=== PATIENT | female | born 1990 | race Caucasian/White ===

== ENCOUNTER 2022-05-31 16:21 | Emergency (ER) | payer OTHER ==
[~2022-05-31 16:21] MED LIST: CIPRODEX 0.3%-7.5 ML OT; CLARITIN10 MG PO; FLAGYL250 MG PO; FLEXERIL5 MG PO; MACROBID100 M1 PO; MOTRIN800 MG PO; NKHM; ZITHROMAX Z PA250 MG PO
== END 2022-05-31 17:07 | disposition home or self-care (01) ==
LOC: ED 16:21
DX: S61.112A Laceration without foreign body of left thumb with damage to nail, initial encounter (principal); Z90.89 Acquired absence of other organs; Z90.49 Acquired absence of other specified parts of digestive tract; W26.0XXA Contact with knife, initial encounter; Y93.89 Activity, other specified; Y92.009 Unspecified place in unspecified non-institutional (private) residence as the place of occurrence of the external cause; Y99.8 Other external cause status

== ENCOUNTER 2022-06-08 10:56 | Emergency (ER) | payer OTHER ==
[~2022-06-08] VITALS: Wt 81.6 kg
[2022-06-08] MEDS ORDERED: AMOXICILLIN500 M2 PO (11:34)
[2022-06-08] MEDS ORDERED: Motrin,Rufen800 MG PO (11:34)
== END 2022-06-08 11:53 | disposition home or self-care (01) ==
LOC: ED 10:56
DX: K02.9 Dental caries, unspecified (principal); Z90.89 Acquired absence of other organs

== ENCOUNTER 2023-06-27 19:34 | Emergency (ER) | payer OTHER, MEDICAID ==
[~2023-06-27] VITALS: Ht 170.1 cm; Wt 86.2 kg
[~2023-06-27 19:34] MED LIST changes: +AMOXICILLIN500 M2 PO; +Motrin,Rufen800 MG PO
[2023-06-27 20:12] LABS: MEAN CELL VOLUME 77.4 fl (81.0-99.0); MEAN CORPUSCULAR HGB CONC 29.7 g/dl (33.0-37.0); MEAN PLATELET VOLUME 10.3 fl (9.6-12.3); PLATELET COUNT AUTOMATED 282 10*3/uL (130-400); RED BLOOD COUNT 4.91 10*6/uL (4.10-5.10); RED CELL DISTRI WIDTH 15.4 % (0-14.5); WHITE BLOOD COUNT 2.7 10*3/uL (4.8-10.8)
[2023-06-27 20:17] LABS: MANUAL DIFF REFLEX YES
[2023-06-27 20:36] LABS: BASOPHILS 1 % (0-1); OVALOCYTES FEW; PLATELET SUFFICIENCY NORMAL (NORMAL); TOTAL CELLS COUNTED 100 #CELLS
[2023-06-27 20:37] LABS: MICROCYTOSIS SLIGHT; POLYCHROMASIA SLIGHT
[2023-06-27 20:38] LABS: BUN 9 mg/dl (9-23); CHLORIDE 108 mmol/L (98-107); POTASSIUM 3.8 mmol/L (3.4-5.1)
[2023-06-27] MEDS ORDERED: Oseltamivir Phosphate 75 MG CAP PO ONE (21:10)
[2023-06-27] MEDS ORDERED: TAMIFLU 75MG CA75 MG PO (22:02)
== END 2023-06-27 22:08 | disposition home or self-care (01) ==
LOC: ED 19:34
PROVIDERS: Nurse Practitioner
DX: J11.1 Influenza due to unidentified influenza virus with other respiratory manifestations (principal); Z20.822 Contact with and (suspected) exposure to COVID-19; Z90.49 Acquired absence of other specified parts of digestive tract; Z90.89 Acquired absence of other organs